=== PATIENT | female | born 1955 | race Caucasian/White ===

== ENCOUNTER 2019-01-23 02:57 | Emergency (ER) | payer MEDICARE ==
[2019-01-23 03:22] VITALS: RESP 16; TEMP 98.7
[2019-01-23] MEDS ORDERED: AMOXIL/CLAVULANATE 400/5 ML PDR PO ONE (03:25)
[2019-01-23] MEDS ORDERED: APAP/HYDROCODONE 1 EACH TABLET PO ONE (03:25)
[2019-01-23] MEDS ORDERED: APAP/HYDROCODONE 1 EACH TABLET ONE (03:29)
[2019-01-23] MEDS ORDERED: AUGMENTIN(FRIDGE) 400 MG/5 ML ONE (03:29)
[2019-01-23 03:47] VITALS: BP 157/98; PULSE 112; O2SAT 96
== END 2019-01-23 03:47 | disposition home or self-care (01) | DRG 159 ==
LOC: ED 02:57
DX: K08.89 Other specified disorders of teeth and supporting structures (principal)
CPT/HCPCS: 99282; A9270-GY